=== PATIENT | female | born 1995 | race Caucasian/White ===

== ENCOUNTER 2020-09-01 07:47 | Inpatient (IN) ==
[2020-09-01] MEDS ORDERED: OXYTOCIN 30 UNITS/500 ML BAG IV PRN ×3 (08:31→22:01)
--- NOTE | 2020-09-01 08:41 | History & Physical Report ---
Date of Service September 01, 2020 Assessment & Plan (1) Supervision of normal intrauterine in primigravida: Admit to L&D. Monitor/toco. Labs. Covid swab per protocol. Start pitocin. OK for epidural when she desires. Admission and Anticipated Discharge Date Admission Date: September 01, 2020 History of Present Illness Chief Complaint: IOL Primary Care Provider: Lj Terry III, CRNP 24yo @ 38 04/07, eIOL. Has been painfully phillip for the past few wee ks. Sullivan bulb placed last night, fell out this morning. No ROM, vaginal bleeding. + movement. Allergies Allergy/AdvReac Type Severity Reaction Status Date / Time willian Allergy Swelling Verified 08/31/20 13:19 of Lip/Tongue/Throat No Known Drug Allergies Allergy Unknown Verified 08/31/20 13:19 passion fruit Allergy Swelling Verified 08/31/20 13:19 of Lip/Tongue/Throat Home Medications Medication Instructions Recorded Confirmed Type simethicone [Gas-X Extra Strength] 125 mg PO BID PRN 08/22/19 09/01/20 History calcium carbonate 200 mg calcium 200 mg PO TID PRN 01/15/20 09/01/20 History (500 mg) chewable tablet prenat.vits,vera,nsa-sqlg-vbcul 1 tab PO DAILY 01/15/20 09/01/20 History famotidine 10 mg PO DAILY 07/12/20 09/01/20 History Patient History Medical History Abdominal discomfort Chronic constipation Delayed gastric emptying Dysphagia GERD (gastroesophageal reflux disease) Irritable bowel syndrome with constipation Ovarian cyst Sore throat Surgical History History of ovarian cystectomy S/P endoscopy S/P wisdom tooth extraction Family History Mother Anxiety Depression Kidney stones Etta's thyroiditis Uncle Diabetes Other Colorectal cancer No family history of adverse response to anesthesia Denies family history of Ovarian cancer Prostate cancer Myocardial infarction Breast cancer Social History Smoking Status: Never smoker Second Hand Exposure: No; Tobacco Cessation Education Requested by Patient: No Hx Alcohol Use: Yes Alcohol type: wine Hx Substance Use: No Preferred Language: Greenlandic Communication Ability: Effective Visual Impairment: No Limitations Hearing Ability: Normal Clinic Administrator Required: No Beliefs That Will Affect Care: None marital status: marital status details: brandy (27) [phone] Current Living Situation: Spouse Current Living Situation Comment: Lives with spouse, 2 dogs, 1 cat, spouse to change litter. current occupational status: employed current occupation: RN PAIN MANAGEMENT @ [employer] Other Information That Helps Us Care for You: No Feels Safe at Home: Yes Childhood Exposure to Second-Hand Smoke: No Diet Comment: fodmap caffeine: Yes during the past year weight has: increased > 10 lbs Dental Care, Regularly: Yes Physical Activity Frequency: 5-6 Times per Week Seatbelt Use: always Sunscreen Use: Yes Assistive Devices: Glasses Review of Systems All systems reviewed & are unremarkable except as noted in HPI & below Physical Exam Physical Exam: Cervix 4-5/70/-2. Cephalic by exam. FHT Cat 1 [place] Q 5 Constitutional: WD/WN, vitals as above Respiratory: normal respiratory effort, lungs clear to auscultation no respiratory distress Cardiovascular: Rate/Rhythm: regular rate and regular rhythm Gastrointestinal (Abdomen): Inspection/Auscultation: abdomen normal to inspection Percussion/Palpation: abdomen soft; abdomen nontender Gravid. No s/s chorio or abruption. Skin: no rashes, warm and dry Psychiatric: A+Ox3, euthymic affect Results & Data ([facility]) Vital Signs (Past 12 Hours) Vital Signs Pulse BP 09/01/20 08:03 118 H 97/54 L Coding Level of Care Code None Diagnoses Supervision of normal intrauterine in primigravida Z34.00
[2020-09-01 08:54] LABS: Hematocrit (blood only) 33.7 % (37-47); Hemoglobin 11.3 g/dL (12.0-16.0); Mean Corpuscular Hemoglobin 31.2 pg (25-34); Mean Corpuscular Hgb Conc 33.5 g/dL (32-36); Mean Corpuscular Volume 93.1 fL (80-100); Mean Platelet Volume 10.2 fL (7.4-10.4); Platelet Count 238 K/uL (130-400); RDW Coefficient of Variation 12.6 % (11.5-14.5); RDW Standard Deviation 43.1 fL (36.4-46.3); Red Blood Count 3.62 M/uL (4.2-5.4); White Blood Count 8.74 K/uL (4.8-10.8)
[2020-09-01] MEDS: LACTATED RINGER'S 1,000 ML IV PRN ×3 (09:11→18:34)
--- NOTE | 2020-09-01 14:06 | Labor Progress Brief Note ---
Date of Service September 01, 2020 Subjective Feeling contractions more. FHT Cat 1 [place] Q3-4 Would like to wait until after epidural to ROM. Assessment & Plan Admission and Anticipated Discharge Date Admission Date: September 01, 2020 Results & Data ([facility]) Vital Signs (Past 12 Hours) Vital Signs Temp Pulse Resp BP 09/01/20 14:03 71 94/56 L 09/01/20 13:24 60 18 101/63 09/01/20 12:36 60 92/54 L 09/01/20 12:05 37 C 20 09/01/20 11:36 36.5 C 62 18 95/53 L 09/01/20 10:16 68 20 100/57 L 09/01/20 09:10 78 119/75 09/01/20 08:03 37.0 C 118 H 18 97/54 L 09/01/20 08:00 37 C 118 H 18 97/54 L Coding Level of Care Code None
[2020-09-01] MEDS ORDERED: fentaNYL citrate 100 MCG/2 ML VIAL ONE (14:10)
[2020-09-01] MEDS ORDERED: SODIUM CHLORIDE 0.9% INJ 10 ML VIAL ONE ×2 (14:10→19:06)
[2020-09-01] MEDS ORDERED: ePHEDrine sulfate 50 MG/ML AMP ONE (14:10)
[2020-09-01] MEDS ORDERED: BUPIVACAINE 0.25% 30 ML VIAL ONE ×2 (14:10→19:06)
[2020-09-01] MEDS ORDERED: fentaNYL 2MCG/ML ROPIVACAINE 1.25MG/ML 100 ML BAG EPI ONE (14:11)
[2020-09-01] MEDS ORDERED: ePHEDrine sulfate 50 MG/ML AMP IV PRN (14:28)
[2020-09-01] MEDS ORDERED: NALOXONE HCL 0.4 MG/1 ML VIAL/CARP IV PRN (14:28)
[2020-09-01] MEDS ORDERED: diphenhydrAMINE 50 MG/ML VIAL IV PRN (14:28)
[2020-09-01] MEDS ORDERED: fentaNYL 2MCG/ML ROPIVACAINE 1.25MG/ML 100 ML BAG EPI PRN (14:28)
[2020-09-01] MEDS ORDERED: NALOXONE HCL 1 MG in SODIUM CHLORIDE 0.9% 1000ML 1,000 ML IV PRN (14:28)
--- NOTE | 2020-09-01 14:34 | Anesthesiology Consultation ---
Date of Service September 01, 2020 Assessment & Plan Chart Review Chart Review: Patient NOT seen in Pre Admission Testing and Acceptable Risk for Labor Epidural Consults Requested none ASA ASA2 Proposed Anesthesia Anesthesia Type: Labor Epidural and CSE Risk / Benefits Reviewed With: PT / POA / Parent / Guardian, Accepts Plan and Informed Consent Obtained History Height/Weight Height: 5 ft 1 in Weight: 59.421 kg Allergies Allergy/AdvReac Type Severity Reaction Status Date / Time willian Allergy Swelling Verified 08/31/20 13:19 of Lip/Tongue/Throat No Known Drug Allergies Allergy Unknown Verified 08/31/20 13:19 passion fruit Allergy Swelling Verified 08/31/20 13:19 of Lip/Tongue/Throat Medications Home Medications Medication Instructions Recorded Confirmed Last Taken simethicone [Gas-X Extra Strength] 125 mg PO BID PRN 08/22/19 09/01/20 08/31/20 calcium carbonate 200 mg calcium 200 mg PO TID PRN 01/15/20 09/01/20 08/31/20 (500 mg) chewable tablet prenat.vits,vera,[id number]-dnkw-zjcxe 1 tab PO DAILY 01/15/20 09/01/20 08/31/20 famotidine 10 mg PO DAILY 07/12/20 09/01/20 08/31/20 Active Medications Generic Name Dose Route Start Last Admin Trade Name Freq PRN Reason Stop Dose Admin Lactated Ringer's 1,000 mls @ 125 mls/hr 09/01/20 08:31 09/01/20 14:34 Lr IV 09/03/20 08:30 999 mls/hr .Q8H PRN Administration L&D Protocol Protocol Oxytocin 30 units in 500 mls @ 17 mls/hr 09/01/20 08:31 09/01/20 14:00 Pitocin IV 09/03/20 08:30 1.02 units/hr .Q24H PRN 17 mls/hr Labor Induction/Augmentation Titration Protocol 1.02 UNITS/HR NPO Date Last Intake of Fluids: 09/01/20 Time Last Intake of Fluids: 12:00 Date Last Intake of Solids: 09/01/20 Time Last Intake of Solids: 06:30 Past Medical History Medical History Abdominal discomfort Chronic constipation Delayed gastric emptying Dysphagia GERD (gastroesophageal reflux disease) Irritable bowel syndrome with constipation Ovarian cyst Sore throat Exercise / Class Metabolic Activity II 4-5 Yardwork/Stairs/Walk up hill Past Family History Family History Mother Anxiety Depression Kidney stones Etta's thyroiditis Uncle Diabetes Other Colorectal cancer No family history of adverse response to anesthesia Denies family history of Ovarian cancer Prostate cancer Myocardial infarction Breast cancer Past Surgical History Surgical History History of ovarian cystectomy S/P endoscopy S/P wisdom tooth extraction Past Anesthesia History No Hx of Anesthesia Complications and No Family Hx of Anesthesia Complications History of PONV No Hx of PONV and No Hx of Motion Sickness Social History Smoking Status: Never smoker Hx Alcohol Use: Yes Alcohol type: wine alcohol intake frequency: a few times a week Hx Substance Use: No substance use type: does not use Review of Systems no chest pain or sob Physical Exam Vital Signs Last Vital Signs Temp 36.8 C 09/01/20 14:03 Pulse 65 09/01/20 14:32 Resp 20 09/01/20 14:03 BP 127/79 09/01/20 14:32 Pulse Ox 100 09/01/20 14:31 ENMT Mouth: no TMJ abnormality Thyromental Distance: > or= 3.5 Finger Breadths Mallampati Class: II Neck normal visual inspection Respiratory normal respiratory effort Auscultation: lungs clear to auscultation bilaterally Cardiovascular Rate/Rhythm: regular rate and regular rhythm Musculoskeletal Spine: normal cervical ROM Neurologic moves all extremities Psychiatric Orientation: alert and oriented x 3 Testing Laboratory Results 09/01/20 08:45
--- NOTE | 2020-09-01 15:17 | Labor Progress Brief Note ---
Date of Service September 01, 2020 Subjective Comfortable with epidural. AROM clear fluid. FHT Cat 1 [place] Q 3 SVE 6/-1 Continue labor. Assessment & Plan Admission and Anticipated Discharge Date Admission Date: September 01, 2020 Results & Data ([facility]) Vital Signs (Past 12 Hours) Vital Signs Temp Pulse Resp BP Pulse Ox 09/01/20 15:12 70 107/71 09/01/20 15:11 72 99 09/01/20 15:09 93 H 102/68 09/01/20 15:06 79 104/66 98 09/01/20 15:03 76 105/65 09/01/20 15:01 84 99 09/01/20 15:00 82 104/68 09/01/20 14:58 18 09/01/20 14:57 74 102/67 09/01/20 14:56 78 99 09/01/20 14:54 80 106/68 09/01/20 14:51 82 101/61 100 09/01/20 14:48 81 20 98/59 L 09/01/20 14:46 79 108/67 99 09/01/20 14:43 71 20 114/72 09/01/20 14:41 79 100 09/01/20 14:38 82 18 120/77 09/01/20 14:36 83 100 09/01/20 14:32 65 18 127/79 09/01/20 14:31 72 100 09/01/20 14:20 20 09/01/20 14:03 36.8 C 71 20 94/56 L 09/01/20 13:24 60 18 101/63 09/01/20 12:36 60 92/54 L 09/01/20 12:05 37 C 20 09/01/20 11:36 36.5 C 62 18 95/53 L 09/01/20 10:16 68 20 100/57 L 09/01/20 09:10 78 119/75 09/01/20 08:03 37.0 C 118 H 18 97/54 L 09/01/20 08:00 37 C 118 H 18 97/54 L Coding Level of Care Code None
[2020-09-01] MEDS ORDERED: NURSING L&D Epidural Breakthrough Pain Update ONE (18:41)
--- NOTE | 2020-09-01 21:53 | Delivery Summary ---
Vaginal Delivery Summary Date of Service September 01, 2020 Vaginal Delivery Summary and 2nd Degree LAC Vaginal Delivery Summary: Pre-delivery diagnoses: 24yo @ 40 1/, IOL Post-delivery diagnoses: same Procedure: spontaneous vaginal delivery, repair of 2nd degree perineal laceration Surgeon: Tiffany Reich DO Complications: none Findings: Viable female . Apgars: please see nursery records. Weight pending, please see nursery records Estimated blood loss: 300ml Description of delivery: The patient progressed to complete with epidural anesthesia. She then began to push. She spontaneously vaginally delivered a viable from the cephalic presentation. The head delivered in CHARLEEN position. Nuchal x 1 easily reduced. The anterior shoulder delivered, followed by the posterior shoulder, followed by the body. The baby was placed on mother's abdomen and a spontaneous cry was heard. Delayed cord clamping was employed, and the cord was doubly clamped and cut. Cord blood was obtained. The placenta was delivered spontaneously intact with a 3-vessel cord. The uterus and vagina were swept of clots and debris. IV pitocin was given. The uterus became firm. The cervix, vagina, and perineum were inspected and2nd degree laceration noted, repaired with 3-0 chromic to bring together tissue just above the intact anal sphincter muscle, followed by 3-0 vicryl in standard fashion. Excellent hemostasis was observed. The mother and baby are recovering in stable and good condition in the room. Sponge, needle and instrument counts were correct x 2. Tiffany Reich DO [facility] Vaginal Delivery Charge Vaginal Delivery Codes: 81662 global code for the antepartum, delivery, and post- Delivery Type Details: and 2nd Degree LAC
[2020-09-01] MEDS ORDERED: bisacodyL 10 MG SUPP PR PRN (22:01)
[2020-09-01] MEDS ORDERED: BENZOCAINE 20% AER SPR 82.5 GM CAN EXT PRN (22:01)
[2020-09-01] MEDS ORDERED: HYDROCORTISONE ACETATE 25 MG SUPP PR PRN (22:01)
[2020-09-01] MEDS ORDERED: DIPHTHERIA/TETANUS/PERTUSSIS 0.5 ML SYR/VIAL IM ONE (22:01)
[2020-09-01] MEDS ORDERED: SUPERCREAM 0.870% 15 GM JAR EXT PRN (22:01)
--- NOTE | 2020-09-01 22:36 | Anesthesia Procedure Note ---
Date of Service September 01, 2020 Anesthesia Post Epidural Note Vital Signs Vital Signs: Temp Pulse Resp BP Pulse Ox 37.0 C 83 18 108/72 99 09/01/20 19:17 09/01/20 22:34 09/01/20 22:04 09/01/20 22:34 09/01/20 22:32 Pain Intensity Abdomen: Pain Intensity: 3 Notes Mental Status: alert / awake / arousable and participated in evaluation Nausea / Vomiting: adequately controlled Pain: adequately controlled Airway Patency, RR, SpO2: stable & adequate BP & HR: stable & adequate Hydration State: stable & adequate Neuraxial Anesthesia: was administered and sensory block is resolving Anesthetic Complications: no major complications apparent and Pt Satisfied with anesthetic care Epidural: Removed without complications and With tip intact
[2020-09-02] MEDS: IBUPROFEN 600 MG TAB PO PRN ×4 (00:05→19:17)
[2020-09-02] MEDS: ACETAMINOPHEN 325 MG TAB PO PRN ×2 (02:07→22:12)
--- NOTE | 2020-09-02 06:03 | Obstetrical Progress Note ---
Date of Service September 02, 2020 Assessment & Plan (1) Supervision of normal intrauterine in primigravida: PPD#1 doing well. Would like DC home tomorrow. Subjective Ambulation: ambulating normally Voiding: no voiding problems Diet Tolerance:: regular diet Lochia:: Moderate Feeding Type:: breast feeding PPD#1 doing well. Review of Systems All systems reviewed & are unremarkable except as noted in HPI & below Physical Exam Constitutional WD/WN, vitals as above no acute distress Respiratory normal respiratory effort Cardiovascular Rate/Rhythm: regular rate and regular rhythm Gastrointestinal (Abdomen) Inspection/Auscultation: abdomen normal to inspection; abdomen not distended Percussion/Palpation: abdomen soft Genitourinary OB Exam Abdomen: + fundal height Fundus: + firm; not tender Results & Data ([facility]) Vital Signs (Past 12 Hours) Vital Signs Temp Pulse Pulse Resp BP BP Pulse Ox 09/02/20 04:40 36.8 C 67 16 109/62 09/01/20 23:10 36.7 C 67 18 130/65 100 09/01/20 23:04 18 09/01/20 23:03 81 110/76 09/01/20 23:02 71 98 09/01/20 22:57 86 98 09/01/20 22:52 85 99 09/01/20 22:49 90 110/77 09/01/20 22:47 90 98 09/01/20 22:42 72 99 09/01/20 22:37 72 99 09/01/20 22:34 83 18 108/72 09/01/20 22:32 87 99 09/01/20 22:27 87 98 09/01/20 22:22 94 H 98 09/01/20 22:19 90 109/71 09/01/20 22:17 88 99 09/01/20 22:12 84 99 09/01/20 22:07 78 98 09/01/20 22:04 78 18 115/72 09/01/20 22:02 89 97 09/01/20 21:57 87 100 09/01/20 21:52 85 99 09/01/20 21:49 18 112/70 09/01/20 21:47 86 98 09/01/20 21:42 64 98 09/01/20 21:37 72 98 09/01/20 21:34 56 L 18 107/65 09/01/20 21:32 70 98 09/01/20 21:27 76 98 09/01/20 21:22 76 98 09/01/20 21:19 86 18 112/72 09/01/20 21:17 78 98 09/01/20 21:12 88 98 09/01/20 21:07 107 H 99 09/01/20 21:04 92 H 18 117/59 L 09/01/20 21:01 88 97 09/01/20 20:58 83 119/62 09/01/20 20:56 80 98 09/01/20 20:51 72 98 09/01/20 20:46 70 97 09/01/20 20:42 96 H 134/81 09/01/20 20:41 83 98 09/01/20 20:36 136 H 98 09/01/20 20:31 94 H 99 09/01/20 20:30 18 09/01/20 20:28 102 H 93 09/01/20 20:26 100 H 100 09/01/20 20:21 81 98 09/01/20 20:16 65 99 09/01/20 20:13 60 100/68 09/01/20 20:11 52 L 98 09/01/20 20:06 61 98 09/01/20 20:01 56 L 98 09/01/20 20:00 18 09/01/20 19:57 62 102/62 09/01/20 19:56 61 98 09/01/20 19:53 52 L 99/56 L 09/01/20 19:51 57 L 96 09/01/20 19:48 51 L 99/58 L 09/01/20 19:46 58 L 97 09/01/20 19:43 51 L 100/55 L 09/01/20 19:41 53 L 97 09/01/20 19:37 50 L 95/53 L 09/01/20 19:36 58 L 96 09/01/20 19:34 52 L 102/57 L 09/01/20 19:31 55 L 97 09/01/20 19:30 18 09/01/20 19:29 51 L 104/55 L 09/01/20 19:26 64 97 09/01/20 19:22 53 L 101/61 09/01/20 19:21 54 L 97 09/01/20 19:20 53 L 102/62 09/01/20 19:18 64 108/66 09/01/20 19:17 37.0 C 09/01/20 19:16 54 L 104/64 97 09/01/20 19:14 54 L 108/63 09/01/20 19:12 54 L 104/62 09/01/20 19:11 55 L 115/65 98 09/01/20 19:06 56 L 97 09/01/20 19:01 56 L 95 09/01/20 19:00 18 09/01/20 18:59 56 L 103/59 L 09/01/20 18:56 55 L 96 09/01/20 18:51 54 L 96 09/01/20 18:46 56 L 97 09/01/20 18:43 53 L 106/65 09/01/20 18:41 54 L 97 09/01/20 18:36 54 L 97 09/01/20 18:31 54 L 96 09/01/20 18:30 18 09/01/20 18:29 53 L 103/67 09/01/20 18:26 53 L 97 09/01/20 18:21 55 L 97 09/01/20 18:16 54 L 97 09/01/20 18:14 52 L 108/65 09/01/20 18:11 60 97 09/01/20 18:06 53 L 98
[2020-09-02 07:12] LABS: Hemoglobin 10.1 g/dL (12.0-16.0)
[2020-09-02] MEDS: PRENATAL VITAMIN 1 TAB PO SCH (08:54)
[2020-09-02] MEDS: DOCUSATE SODIUM 100 MG CAP PO SCH ×2 (08:56→20:56)
[2020-09-02] MEDS: oxyCODONE/ACETAMINOPHEN 5mg/325mg TAB PO PRN ×2 (14:46→23:54)
[2020-09-02] MEDS ORDERED: bisacodyL 5 MG TABEC PO SCH (20:00)
[2020-09-02] MEDS ORDERED: POLYETHYLENE (MIRALAX) 17 GM PACK PO PRN (20:51)
--- NOTE | 2020-09-03 07:25 | Obstetrical Progress Note ---
Date of Service September 03, 2020 Assessment & Plan (1) state: day #1.5 meets discharge criteria ambulating well no depression no extremity pain discharge instructions reviewed Subjective Ambulation: ambulating normally Voiding: no voiding problems Passing Gas:: Yes Diet Tolerance:: regular diet Lochia:: Small Feeding Type:: breast feeding Current Pain Level(1-10): 1 Results & Data ([facility]) Vital Signs (Past 12 Hours) Vital Signs Temp Pulse Resp BP Pulse Ox 09/03/20 01:44 98.2 F 60 18 116/80 99
[2020-09-03] MEDS: IBUPROFEN 600 MG TAB PO PRN (08:52)
[2020-09-03] MEDS: DOCUSATE SODIUM 100 MG CAP PO SCH (08:52)
[2020-09-03] MEDS: PRENATAL VITAMIN 1 TAB PO SCH (08:53)
== END 2020-09-03 11:00 | disposition home or self-care (01) | DRG 807 ==
LOC: 4S1 07:47 → 4S2 23:22

== ENCOUNTER 2023-09-04 07:52 | Inpatient (IN) ==
[2023-09-04] MEDS ORDERED: LIDOCAINE 1% LOCAL 20 ML VIAL INFIL PRN (08:02)
[2023-09-04] MEDS ORDERED: OXYTOCIN 30 UNITS/NSS 30 UNITS/500 ML BAG IV PRN ×2 (08:02→14:51)
--- NOTE | 2023-09-04 08:05 | History & Physical Report ---
Date of Service September 04, 2023 Assessment & Plan (1) Encounter for elective induction of labor: Plan 27 year-old currently at 40 weeks 1 day gestational age presents for elective induction of labor -GBS negative - Fetus- Category 1 tracing - Rubella Equivocal- post MMR - Pitocin as protocol - Arom if need it - Epidural when requested Admission and Anticipated Discharge Date Admission Date: September 04, 2023 History of Present Illness Primary Care Provider: Lj Terry III, TAKE UP OPERATOR 27 y/o at 40 weeks with 1 day of gestational age. Here for an elective induction of labor. No complications in . Has been attending OB appointments regularly. Currently taking no medications. GBS negative, Rubella equivocal, BTG: O+ Contractions: none. Fluid or Blood loss: none Movement: active FHR baseline 150, moderate variability, accelerations present, decelerations absent OB Labs: Blood Type O Positive 01/22/23 Antibody Screen NEGATIVE 01/22/23 Hemoglobin 11.4 g/dl (12.0-16.0) L 06/18/23 Hematocrit 33.2 % (37.0-47.0) L 06/18/23 Mean Corpuscular Volume 90.3 fL (80.0-100.0) 01/22/23 Platelet Count 297 K/uL (130-400) 01/22/23 Rubella IgG Antibody Equivocal (Immune) L 01/22/23 Rapid Plasma Reagin Nonreactive (Nonreactive) 01/22/23 Hepatitis B Surface Antigen Neg (Neg) 01/19/20 Hepatitis B Surface Antigen. NON-REACTIVE (NON-REACTIVE) 01/22/23 Hepatitis C Antibody (EIA) NON-REACTIVE (NON-REACTIVE) 01/22/23 HIV (1&2) Ab and P24 Ag, 4th Gener Neg (Neg) 01/19/20 HIV (1&2) Ag and Ab Confirmation NON-REACTIVE (NON-REACTIVE) 01/22/23 Glucose 1 Hour 50 gm Load 160 mg/dl (70-130) H 06/18/23 OB Optional Labs: Chlamydia trachomatis RNA Not Detected (NotDetected) 01/22/23 Neisseria gonorrhoeae RNA Not Detected (NotDetected) 01/22/23 Thyroid Stimulating Hormone (TSH) 2.009 uIu/ml (0.300-4.500) 01/22/23 Labs Reviewed: no labs to pull forward from prior , HK Declines genetics--mln passed 28 week 2 hr gtt--akh Allergies Allergy/AdvReac Type Severity Reaction Status Date / Time willian Allergy Severe Swelling Verified 09/03/23 10:43 of Lip/Tongue/Throat passion fruit Allergy Severe Swelling Verified 09/03/23 10:43 of Lip/Tongue/Throat No Known Drug Allergies Allergy Unknown Verified 09/03/23 10:43 Home Medications Medication Instructions Recorded Confirmed Type prenat.vits,vera,ifw-wfam-ysgih 1 tab PO DAILY 07/19/22 09/03/23 History breast pump #1 ea 07/02/23 09/03/23 Rx Patient History Medical History (Updated 09/04/23 @ 08:34 by Virginia Langford MD, FACOG) History of anemia HX MILD ANEMIA DURING 1ST Supervision of normal intrauterine in primigravida GERD (gastroesophageal reflux disease) Surgical History S/P D&C (status post dilation and curettage) end of November 2022 History of esophagogastroduodenoscopy (EGD) History of laparoscopy [place] teeth removed History of ovarian cystectomy S/P wisdom tooth extraction Family History Mother Anxiety Depression Kidney stones Etta's thyroiditis Uncle Diabetes Other Colorectal cancer No family history of adverse response to anesthesia Denies family history of Ovarian cancer Prostate cancer Myocardial infarction Breast cancer Social History (Updated 01/15/23 @ 09:52 by Michelle Carrillo) Smoking Status: Never smoker Second Hand Exposure: No; Do You Dip or Chew Tobacco: No; Hx Alcohol Use: No Hx Substance Use: No Preferred Language: Bolivian Communication Ability: Effective Visual Impairment: No Limitations Hearing Ability: Normal 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 Beliefs That Will Affect Care: None marital status: marital status details: brandy (30) [phone] Current Living Situation: Spouse and Family Current Living Situation Comment: 3 year old daughter current occupational status: employed current occupation: [employer] @ [employer] How many Children do You have: 1 Feels Safe at Home: Yes Childhood Exposure to Second-Hand Smoke: No Diet: other Diet Comment: pseudo fodmap diet caffeine: Yes during the past year weight has: increased > 10 lbs Dental Care, Regularly: Yes Physical Activity Frequency: 5-6 Times per Week Seatbelt Use: always Sunscreen Use: Yes Assistive Devices: Contacts and Glasses Review of Systems as per HPI Physical Exam Physical Exam: General: patient resting comfortably, NAD, non-toxic in appearance, AA&O x 4, answers questions appropriately. Heart: +S1/S2, regular, no m/r/g Lungs: equal air entry bilaterally, no rales/rhonchi/wheezes Abd: +BS, soft, NT/ND, gravid uterus Ext: warm, no clubbing/cyanosis or edema Neuro: nonfocal, patient AA&O x 4, speech intact, no facial droop, moving all extremities on command. Results & Data Vital Signs (Past 12 Hours) Vital Signs Pulse BP 09/04/23 07:59 93 H 116/80 Supervising Physician Co-Signing Physician Notes Resident Physician Supervision Note: I interviewed and examined the patient. Discussed with Dr. Eubanks and agree with findings and plan as documented in the note. Any exceptions or clarifications are listed here: Pt at 40+wks and requested elective induction of labor. Has been having on and off ctx for weeks. EFW 6-7#. abd soft gravid nt. ext nt calves. fhts categ 1. sve 3/50/-2 mid med, arom clear. Will plan pitocin. fhts categ 1. Patient and partner agreeable to this plan. Documented By: Virginia Langford MD, FACOG Resident Activity Tracking Resident Involvement: Resident Care Provided Care Provided: OB Delivery
[2023-09-04 08:46] LABS: Hematocrit (blood only) 32.8 % (37.0-47.0); Mean Corpuscular Hemoglobin 30.2 pg (25.0-34.0); Mean Corpuscular Hgb Conc 33.5 g/dL (32.0-36.0); Mean Corpuscular Volume 90.1 fL (80.0-100.0); Mean Platelet Volume 11.4 fL (9.4-12.4); Platelet Count 192 K/uL (130-400); RDW Coefficient of Variation 12.8 % (11.5-14.5); RDW Standard Deviation 42.2 fL (36.4-46.3); Red Blood Count 3.64 M/uL (4.20-5.40); White Blood Count 6.41 K/ul (4.8-10.8)
[2023-09-04] MEDS: LACTATED RINGER'S 1,000 ML IV PRN (08:47)
[2023-09-04] MEDS: OXYTOCIN 30 UNITS/NSS 30 UNITS/500 ML BAG IV PRN (08:48)
[2023-09-04] MEDS ORDERED: ROPIVACAINE 0.5% PF 5 MG/ML 20 ML VIAL EPI PRN (13:23)
[2023-09-04] MEDS ORDERED: SODIUM CHLORIDE 0.9% PF INJ 10 ML VIAL EPI PRN (13:23)
[2023-09-04] MEDS ORDERED: BUPIVACAINE 0.25% PF 30 ML VIAL EPI PRN (13:23)
[2023-09-04] MEDS ORDERED: NALBUPHINE HCL 5 MG in SYRINGE 0 ML IV PRN (13:23)
[2023-09-04] MEDS ORDERED: diphenhydrAMINE 50 MG/ML VIAL IV PRN (13:23)
[2023-09-04] MEDS ORDERED: LIDOCAINE 2%/EPINEPHRINE 1:200,000 20 ML PF EPI STA (13:23)
[2023-09-04] MEDS ORDERED: fentaNYL citrate PF 100 MCG/2 ML VIAL EPI PRN (13:23)
[2023-09-04] MEDS ORDERED: LIDOCAINE 2% MPF LOCAL 5 ML VIAL EPI PRN (13:23)
[2023-09-04] MEDS ORDERED: ONDANSETRON INJ 2 MG/ML 2 ML VIAL IV PRN (13:23)
[2023-09-04] MEDS ORDERED: NALOXONE HCL 0.4 MG/1 ML VIAL/CARP IV PRN (13:23)
[2023-09-04] MEDS ORDERED: ePHEDrine sulfate 50 MG/ML AMP IV PRN (13:23)
[2023-09-04] MEDS ORDERED: BUPIVACAINE 0.25% PF 30 ML VIAL EPI STA (13:23)
[2023-09-04] MEDS ORDERED: NALOXONE HCL 1 MG in SODIUM CHLORIDE 0.9% 1,000 ML IV PRN (13:23)
[2023-09-04] MEDS ORDERED: fentANYL 2 MCG/ML BUPIVacaine 0.125%-NSS 100ML BAG EPI PRN (13:23)
[2023-09-04] MEDS ORDERED: SODIUM CHLORIDE 0.9% PF INJ 10 ML VIAL EPI STA (13:23)
--- NOTE | 2023-09-04 13:23 | Anesthesiology Consultation ---
Date of Service September 04, 2023 Assessment & Plan ASA ASA2 Proposed Anesthesia Anesthesia Type: Labor Epidural Risk / Benefits Reviewed With: PT / POA / Parent / Guardian, Accepts Plan and Informed Consent Obtained History Height/Weight Height: 5 ft 1 in Weight: 58.06 kg Allergies Allergy/AdvReac Type Severity Reaction Status Date / Time willian Allergy Severe Swelling Verified 09/03/23 10:43 of Lip/Tongue/Throat passion fruit Allergy Severe Swelling Verified 09/03/23 10:43 of Lip/Tongue/Throat No Known Drug Allergies Allergy Unknown Verified 09/03/23 10:43 docusate [From Colace] AdvReac Gastrointestinal Verified 09/04/23 09:30 Upset ferrous sulfate AdvReac Gastrointestinal Verified 09/04/23 09:30 Upset Medications Home Medications Medication Instructions Recorded Confirmed Last Taken prenat.vits,vera,ync-nqew-rlyyu 1 tab PO DAILY 07/19/22 09/04/23 09/03/23 breast pump #1 ea 07/02/23 09/03/23 Unknown Active Medications Generic Name Dose Route Start Last Admin Trade Name Tonioq PRN Reason Stop Dose Admin Lactated Ringer's 1,000 mls @ 125 mls/hr 09/04/23 08:02 09/04/23 13:16 Lr IV 09/06/23 08:01 999 mls/hr .Q8H PRN Administration L&D Protocol Protocol Oxytocin 30 units in 500 mls @ 5 mls/hr 09/04/23 08:04 09/04/23 11:31 Pitocin 30 Units/Nss IV 09/06/23 08:03 0.3 units/hr .Q24H PRN 5 mls/hr Labor Induction/Augmentation Titration Protocol 0.3 UNITS/HR Past Medical History Medical History History of anemia HX MILD ANEMIA DURING 1ST Supervision of normal intrauterine in primigravida GERD (gastroesophageal reflux disease) Exercise / Class Metabolic Activity II 4-5 Yardwork/Stairs/Walk up hill Past Family History Family History Mother Anxiety Depression Kidney stones Etta's thyroiditis Uncle Diabetes Other Colorectal cancer No family history of adverse response to anesthesia Denies family history of Ovarian cancer Prostate cancer Myocardial infarction Breast cancer Past Surgical History Surgical History S/P D&C (status post dilation and curettage) end of November 2022 History of esophagogastroduodenoscopy (EGD) History of laparoscopy [place] teeth removed History of ovarian cystectomy S/P wisdom tooth extraction Past Anesthesia History No Hx of Anesthesia Complications and No Family Hx of Anesthesia Complications History of PONV No Hx of PONV and No Hx of Motion Sickness Social History Smoking Status: Never smoker Do You Dip or Chew Tobacco: No Hx Alcohol Use: No Alcohol type: wine alcohol intake frequency: a few times a week Hx Substance Use: No substance use type: does not use Review of Systems denies fever/cough/ colds/ chest pain/ SOB/ LILIA denies LILIA Physical Exam Vital Signs Last Vital Signs Temp 36.6 C 09/04/23 11:06 Pulse 49 L 09/04/23 13:18 Resp 18 09/04/23 11:31 BP 108/74 09/04/23 12:53 Pulse Ox 100 09/04/23 13:18 ENMT Mouth: no TMJ abnormality and no dentition abnormality Thyromental Distance: > or= 3.5 Finger Breadths Mallampati Class: II Neck neck extension not limited Respiratory normal respiratory effort; no respiratory distress Auscultation: lungs clear to auscultation bilaterally Cardiovascular Rate/Rhythm: regular rate and regular rhythm Neurologic moves all extremities Psychiatric Orientation: alert and oriented x 3 Testing Laboratory Results 09/04/23 08:27
[2023-09-04] MEDS: fentANYL 2 MCG/ML BUPIVacaine 0.125%-NSS 100ML BAG ONE (13:38)
[2023-09-04] MEDS: BUPIVACAINE 0.25% PF 30 ML VIAL ONE (13:38)
[2023-09-04] MEDS: LIDOCAINE 2%/EPINEPHRINE 1:200,000 20 ML PF ONE (13:38)
[2023-09-04] MEDS: fentaNYL citrate PF 100 MCG/2 ML VIAL EPI STA (13:42)
--- NOTE | 2023-09-04 13:51 | Communication Note ---
Date of Service: September 04, 2023 pt was feeling pressure prior to epidural so i did a cse with 0.75 mL of bupivicaine.
--- NOTE | 2023-09-04 14:40 | Delivery Summary ---
Vaginal Delivery Summary Date of Service September 04, 2023 Vaginal Delivery Summary and 2nd Degree LAC The patient dilated to complete and pushed to deliver a viable female infant Apgars 8 and 9 via over 2nd degree perineal laceration. Mouth and nose bulb suctioned at perineum. Loose nuchal x 1 reduced. Shoulders and body delivered with ease. was vigorous and crying at . Cord clamped at 40 seconds of life and to maternal abdomen where the cord was then doubly clamped and cut. Placenta delivered spontaneously and intact, three-vessel cord. Hemostasis achieved with dilute pitocin and uterine massage. Cervix and sulci intact. Laceration repaired in layers in routine fashion with 3-0 vicryl. QBL 83 cc. Mother and baby stable in recovery. [facility] Vaginal Delivery Charge Delivery Type Details: and 2nd Degree LAC
[2023-09-04] MEDS ORDERED: ACETAMINOPHEN 325 MG TAB PO PRN (14:51)
[2023-09-04] MEDS ORDERED: bisacodyL 10 MG SUPP PR PRN (14:51)
[2023-09-04] MEDS ORDERED: HYDROCORTISONE ACETATE 25 MG SUPP PR PRN (14:51)
[2023-09-04] MEDS: ePHEDrine sulfate 50 MG/ML AMP ONE (16:31)
[2023-09-04] MEDS: fentaNYL citrate PF 100 MCG/2 ML VIAL ONE (16:31)
[2023-09-04] MEDS: SODIUM CHLORIDE 0.9% PF INJ 10 ML VIAL ONE (16:31)
[2023-09-04] MEDS: OXYTOCIN 20 UNITS/LR 1,002 ML IV SCH (16:39)
--- NOTE | 2023-09-04 16:41 | Anesthesia Procedure Note ---
Date of Service September 04, 2023 Anesthesia Post Epidural Note Vital Signs Vital Signs: Temp Pulse Resp BP Pulse Ox 36.6 C 68 18 106/79 100 09/04/23 11:06 09/04/23 16:29 09/04/23 11:31 09/04/23 16:29 09/04/23 14:18 Notes Mental Status: alert / awake / arousable and participated in evaluation Nausea / Vomiting: adequately controlled Pain: adequately controlled Airway Patency, RR, SpO2: stable & adequate BP & HR: stable & adequate Hydration State: stable & adequate Neuraxial Anesthesia: was administered and sensory block resolved Anesthetic Complications: no major complications apparent and Pt Satisfied with anesthetic care Epidural: Removed without complications and With tip intact
[2023-09-04] MEDS: IBUPROFEN 600 MG TAB PO PRN (18:43)
[2023-09-04] MEDS: BENZOCAINE 20% SPRY 85 APPLN/85 GM CAN EXT PRN (19:05)
[2023-09-04] MEDS: DIPHTHER/TETAN/PERTUS Vaccine (Tdap, Adol/Adult) 0.5mL IM ONE (22:54)
[2023-09-04] MEDS: DOCUSATE SODIUM 100 MG CAP PO SCH (22:54)
--- NOTE | 2023-09-05 06:03 | Obstetrical Progress Note ---
Date of Service September 05, 2023 Assessment & Plan (1) Encounter for care and examination after delivery: Plan 27 yo post- day 1 s/p Fells well today Vital signs reviewed Rubella equivocal, will give MMR BGT: O+ Encourage breast feeding Continue post care Discharge home today, instructions reviewed Follow up 6 weeks Admission and Anticipated Discharge Date Admission Date: September 04, 2023 Supervising Physician Co-Signing Physician Notes Resident Physician Supervision Note: I was present with Dr. Eubanks during the history and exam. I discussed the case with the resident and agree with the findings and plan as documented in the note. Any exceptions or clarifications are listed here: stable doing well ppd #1 eating, voiding, breast feeding, ambulating, abd soft 2down nt, ext nt calves. will dc home later today. instructions reviewed. f/u 6 wk pp. Documented By: Virginia Langford MD, FACOG Subjective 27 yo post- day 1 s/p Ambulation: ambulating normally Voiding: no voiding problems Passing Gas: Yes Diet Tolerance: regular diet Lochia:: Small Feeding Type: breast feeding Current Pain Level: mild Resting comfortably this AM in NAD. Denies MEEKS, CP, SOB, N/V/D, LE pain/swelling. Review of Systems Review of Systems: as per hpi Physical Exam Physical Exam: General: patient resting comfortably, NAD, non-toxic in appearance, AA&O x 4, answers questions appropriately. Heart: +S1/S2, regular, no m/r/g Lungs: equal air entry bilaterally, no rales/rhonchi/wheezes Abd: +BS, soft, NT/ND, uterine fundus firm at umbilicus Ext: warm, no clubbing/cyanosis or edema, Pavel's neg. Neuro: nonfocal, patient AA&O x 4, speech intact, no facial droop, moving all extremities on command. Results & Data Vital Signs (Past 12 Hours) Vital Signs Temp Pulse Pulse Resp BP Pulse Ox O2 Del Method 09/05/23 05:00 36.8 C 50 L 18 Room Air 09/04/23 23:50 36.9 C 67 18 122/79 Room Air 09/04/23 19:15 36.3 C L 67 18 111/76 96 Room Air 09/04/23 18:15 36.5 C 60 18 123/82 99 Room Air Resident Activity Tracking Resident Involvement: Resident Care Provided Care Provided: OB Delivery
[2023-09-05] MEDS: PRENATAL VITAMIN 1 TAB PO SCH (09:12)
[2023-09-05] MEDS ORDERED: MEASLES, MUMPS & RUBELLA VIRUS VACCINE (MMR) 0.5ML VIAL ONE (09:15)
[2023-09-05] MEDS: MEASLES, MUMPS & RUBELLA VIRUS VACCINE (MMR) 0.5ML VIAL SQ ONE (09:35)
[2023-09-05] MEDS: oxyCODONE/ACETAMINOPHEN 5mg/325mg TAB PO PRN (09:42)
== END 2023-09-05 16:30 | disposition home or self-care (01) | DRG 807 ==
LOC: 4S1 07:52 → 4E2 18:47